=== PATIENT | female | born 1975 ===

== ENCOUNTER 2020-04-29 13:36 | Emergency (ER) | payer OTHER ==
[~2020-04-29] VITALS: Ht 154.9 cm; Wt 73.5 kg
[2020-04-29] MEDS ORDERED: GLUMETZA500 MG PO (13:58)
[2020-04-29] MEDS ORDERED: ENALAPRIL MALE2.5 MG PO (13:58)
[2020-04-29] MEDS ORDERED: DILTIAZEM ER360 M1 PO (13:58)
[2020-04-29] MEDS ORDERED: MEGESTROL ACETA40 MG PO (13:59)
== END 2020-04-29 20:34 | disposition home or self-care (01) ==
LOC: ER 13:36
DX: N93.8 Other specified abnormal uterine and vaginal bleeding (principal); Z20.822 Contact with and (suspected) exposure to COVID-19

== ENCOUNTER 2020-05-02 10:39 | Emergency (ER) | payer OTHER ==
[~2020-05-02] VITALS: Ht 154.9 cm; Wt 72.6 kg
[~2020-05-02 10:39] MED LIST: DILTIAZEM ER360 M1 PO; ENALAPRIL MALE2.5 MG PO; GLUMETZA500 MG PO; MEGESTROL ACETA40 MG PO
[2020-05-02] MEDS ORDERED: TOPROL XL100 M1 (10:59)
[2020-05-02] MEDS ORDERED: LIPITOR20 MG (11:00)
== END 2020-05-02 16:17 | disposition home or self-care (01) ==
LOC: ER 10:39
DX: I16.0 Hypertensive urgency (principal); M54.5 Low back pain; Z20.822 Contact with and (suspected) exposure to COVID-19